=== PATIENT | male | born 1980 | race Caucasian/White ===

== ENCOUNTER 2019-01-04 23:06 | Emergency (ER) | payer OTHER ==
[~2019-01-04] VITALS: Ht 180.3 cm; Wt 74.8 kg
[2019-01-05] MEDS ORDERED: NORCO 5-325 TA1 EACH PO (00:14)
[2019-01-05] MEDS ORDERED: IBUPROFEN 800800 MG PO (00:14)
[2019-01-05] MEDS ORDERED: KEFLEX500 M1 PO (00:14)
[2019-01-05 00:33] VITALS: BP 111/66
== END 2019-01-05 00:33 | disposition home or self-care (01) ==
LOC: M.ERS 23:06
DX: S61.431A Puncture wound without foreign body of right hand, initial encounter (principal); W26.0XXA Contact with knife, initial encounter; Y93.89 Activity, other specified; Y92.89 Other specified places as the place of occurrence of the external cause; Y99.8 Other external cause status

== ENCOUNTER 2021-01-19 22:22 | Emergency (ER) | payer OTHER ==
[~2021-01-19] VITALS: Ht 180.3 cm; Wt 77.1 kg
[~2021-01-19 22:22] MED LIST: IBUPROFEN 800800 MG PO; KEFLEX500 M1 PO; NORCO 5-325 TA1 EACH PO
[2021-01-19] MEDS ORDERED: GENTAK5 ML TOP (23:12)
[2021-01-19 23:30] VITALS: BP 131/70
== END 2021-01-19 23:31 | disposition home or self-care (01) ==
LOC: M.ERS 22:22
DX: T15.81XA Foreign body in other and multiple parts of external eye, right eye, initial encounter (principal); F12.90 Cannabis use, unspecified, uncomplicated; Z79.899 Other long term (current) drug therapy; X58.XXXA Exposure to other specified factors, initial encounter; Y93.89 Activity, other specified; Y92.89 Other specified places as the place of occurrence of the external cause; Y99.9 Unspecified external cause status